=== PATIENT | male | born 1980 | race Caucasian/White ===

== ENCOUNTER 2016-06-11 21:32 | Emergency (ER) | payer SELFPAY ==
[~2016-06-11] VITALS: Ht 185.4 cm; Wt 66.5 kg
[~2016-06-11 21:32] MED LIST: BACTRIM,SEPT1 TABLET PO; BACTROBAN OINTM22 GM TP; CILOXAN 0.100 DROP/5 RIGHT EYE; NORCO 5/3251 TABLET PO; OXYCONTIN30 MG PO; PERCOCET 5/31 TABLET PO; VIBRAMYCIN100 MG PO; ZOLOFT100 MG PO
[2016-06-11 22:36] LABS: HEMATOCRIT 41.8 % (38.0-50.0); MCH 28.2 PG (29.0-34.0); MCHC 34.9 G/DL (30.0-36.0); MCV 80.7 FL (86-99); MEAN PLAT.VOLUME 9.9 uM^3 (9.0-12.4); PLATELET COUNT 195 K/uL (156-360); RBC DIS.WIDTH-SD 35.3 % (39-53); RED BLOOD COUNT 5.18 M/uL (4.00-5.50); WHITE BLOOD COUNT 4.6 K/uL (4.1-10.2)
[2016-06-11 22:44] LABS: CHLORIDE 106 mEq/L (99-109); POTASSIUM 3.8 mEq/L (3.7-5.4); SODIUM 140 mEq/L (136-147)
[2016-06-11 22:46] LABS: GLUCOSE 100 mg/dL (70-99)
[2016-06-11 22:48] LABS: ANION GAP 9 MEQ/L (2-14)
[2016-06-11 22:49] LABS: SERUM ETHYL ALCOHOL < 10 mg/dL
[2016-06-11 22:50] LABS: GFR ESTIMATE (CALCULATED) > 59 mL/min/
[2016-06-11 22:51] LABS: UREA NITROGEN (BUN) 8 mg/dL (9-23)
[2016-06-11 23:19] VITALS: BP 124/93
== END 2016-06-11 23:22 | disposition home or self-care (01) ==
LOC: EME 21:32
PROVIDERS: Emergency Medicine
DX: F33.1 Major depressive disorder, recurrent, moderate (principal); I25.2 Old myocardial infarction
CPT/HCPCS: 80048; 85027; 90839; 99281; 99285; G0480